=== PATIENT | female | born 1955 | race African-American/Black ===

== ENCOUNTER 2022-02-16 11:51 | Inpatient (IN) | payer OTHER ==
[2022-02-16 12:41] VITALS: BMI 27.2
[2022-02-16] MEDS ORDERED: MAGNESIUM HYDROX 2400MG/30ML ORAL SUSPENSION 30 ML CUP PO PRN (13:41)
[2022-02-16] MEDS ORDERED: NICOTINE 10 MG CARTRIDGE (INHALER) IH PRN (13:41)
[2022-02-16] MEDS ORDERED: DICYCLOMINE HCL 10 MG CAPSULE PO PRN (13:41)
[2022-02-16] MEDS ORDERED: BISMUTH SUBSALICYLATE 262 MG/15 ML BTL PO PRN (13:41)
[2022-02-16] MEDS ORDERED: ACETAMINOPHEN 325 MG TABLET (FP) PO PRN ×2 (13:41)
[2022-02-16] MEDS ORDERED: IBUPROFEN 400 MG TABLET (FP) PO PRN (13:41)
[2022-02-16] MEDS ORDERED: MAG HYDROX/AL HYDROX/SIMETH 30 ML UNIT-DOSE CUP PO PRN (13:41)
[2022-02-16] MEDS ORDERED: IBUPROFEN 600 MG TABLET (FP) PO PRN (13:41)
[2022-02-16] MEDS ORDERED: chlordiazePOXIDE HCL 25 MG CAPSULE PO PRN (13:41)
[2022-02-16] MEDS ORDERED: ONDANSETRON *ODT* 4 MG TABLET SL PRN (13:41)
[2022-02-16] MEDS ORDERED: MAGNESIUM CITRATE 300 ML BOTTLE PO PRN (13:41)
[2022-02-16] MEDS ORDERED: LOPERAMIDE HCL 2 MG CAPSULE PO PRN (13:41)
[2022-02-16] MEDS ORDERED: BENZOCAINE/MENTHOL (CHLORASEPTIC ) LOZENGE MM PRN (13:41)
[2022-02-16] MEDS: hydrOXYzine PAMOATE 25 MG CAPSULE (FP) PO SCH ×3 (15:05→22:50)
[2022-02-16] MEDS: METHOCARBAMOL 500 MG TABLET PO PRN (15:06)
[2022-02-16] MEDS: PRENATAL VITAMINS W/ FOLIC ACID TABLET (FP) PO SCH (15:06)
[2022-02-16] MEDS: NICOTINE 14 MG/24 HOURS TOPICAL PATCH TD SCH (15:07)
[2022-02-16] MEDS: chlordiazePOXIDE HCL 25 MG CAPSULE PO SCH ×2 (18:52→22:50)
[2022-02-16] MEDS ORDERED: MELATONIN 5 MG TABLETS PO SCH (22:00)
[2022-02-16] MEDS: THIAMINE HCL 100 MG TABLET (FP) PO SCH (22:50)
[2022-02-17] MEDS: chlordiazePOXIDE HCL 25 MG CAPSULE PO SCH ×2 (06:08→10:09)
[2022-02-17] MEDS: hydrOXYzine PAMOATE 25 MG CAPSULE (FP) PO SCH ×5 (06:08→22:38)
[2022-02-17] MEDS: amLODIPine BESYLATE 5 MG TABLET (FP) PO SCH (10:09)
[2022-02-17] MEDS: METOPROLOL TARTRATE 50 MG TABLET (FP) PO SCH ×2 (10:09→22:38)
[2022-02-17] MEDS: PRENATAL VITAMINS W/ FOLIC ACID TABLET (FP) PO SCH (10:09)
[2022-02-17] MEDS: LORATADINE 10 MG TABLET PO SCH (10:09)
[2022-02-17] MEDS: NICOTINE 14 MG/24 HOURS TOPICAL PATCH TD SCH (10:10)
[2022-02-17] MEDS ORDERED: methaDONE HCL 40 MG DISPERSABLE TABLET PO ONE (10:14)
[2022-02-17] MEDS ORDERED: diazePAM 5 MG TABLET PO PRN (10:50)
[2022-02-17 12:03] LABS: HEMOGLOBIN 11.3 GM/dL (10.7-15.3); MCH 28.5 pg (25.7-33.7); MCHC 33.3 g/dl (32.0-36.0); MEAN CELL VOLUME 85.6 fl (80-96); MEAN PLT VOLUME 9.4 fl (7.5-11.1); PLATELET COUNT 178 10^3/uL (134-434); RBC 3.97 M/mm3 (3.60-5.2); RDW 15.2 % (11.6-15.6); WHITE BLOOD COUNT 6.6 K/mm3 (4.0-10.0)
[2022-02-17 12:24] LABS: CALCIUM 8.7 mg/dL (8.5-10.1)
[2022-02-17 12:25] LABS: BLOOD UREA NITROGEN 21.4 mg/dL (7-18)
[2022-02-17 12:27] LABS: CREATININE 0.9 mg/dL (0.55-1.3)
[2022-02-17 12:29] LABS: TOT PROT 6.8 g/dl (6.4-8.2)
[2022-02-17 12:30] LABS: BILIRUBIN,TOTAL 0.3 mg/dL (0.2-1)
[2022-02-17] MEDS: ARIPiprazole 10 MG TABLET PO SCH (12:41)
[2022-02-17] MEDS: diazePAM 5 MG TABLET PO SCH ×3 (12:41→22:39)
[2022-02-17] MEDS: busPIRone HCL 10 MG TABLET (FP) PO SCH (12:41)
[2022-02-17] MEDS: metFORMIN HCL 500 MG TABLET (FP) PO SCH (17:48)
[2022-02-17] MEDS: TAMSULOSIN HCL 0.4 MG CAP PO SCH (22:38)
[2022-02-17] MEDS: THIAMINE HCL 100 MG TABLET (FP) PO SCH (22:39)
[2022-02-18] MEDS ORDERED: chlordiazePOXIDE HCL 25 MG CAPSULE PO SCH (05:00)
[2022-02-18] MEDS: methaDONE HCL 40 MG DISPERSABLE TABLET PO SCH (06:23)
[2022-02-18] MEDS: hydrOXYzine PAMOATE 25 MG CAPSULE (FP) PO SCH ×5 (06:24→22:26)
[2022-02-18] MEDS: metFORMIN HCL 500 MG TABLET (FP) PO SCH ×2 (06:24→18:21)
[2022-02-18] MEDS: diazePAM 5 MG TABLET PO SCH ×4 (06:24→22:26)
[2022-02-18] MEDS: amLODIPine BESYLATE 5 MG TABLET (FP) PO SCH (10:47)
[2022-02-18] MEDS: METOPROLOL TARTRATE 50 MG TABLET (FP) PO SCH ×2 (10:47→22:26)
[2022-02-18] MEDS: ARIPiprazole 10 MG TABLET PO SCH (10:48)
[2022-02-18] MEDS: PRENATAL VITAMINS W/ FOLIC ACID TABLET (FP) PO SCH (10:49)
[2022-02-18] MEDS: busPIRone HCL 10 MG TABLET (FP) PO SCH (10:49)
[2022-02-18] MEDS: LORATADINE 10 MG TABLET PO SCH (10:49)
[2022-02-18] MEDS: NICOTINE 14 MG/24 HOURS TOPICAL PATCH TD SCH (10:49)
[2022-02-18] MEDS: TAMSULOSIN HCL 0.4 MG CAP PO SCH (22:26)
[2022-02-18] MEDS: SUVOREXANT 10 MG TABLET PO PRN (22:27)
[2022-02-19] MEDS ORDERED: chlordiazePOXIDE HCL 10 MG CAPSULE PO PRN
[2022-02-19] MEDS: THIAMINE HCL 100 MG TABLET (FP) PO SCH ×2 (00:02→22:46)
[2022-02-19] MEDS ORDERED: chlordiazePOXIDE HCL 10 MG CAPSULE PO SCH (05:00)
[2022-02-19] MEDS: metFORMIN HCL 500 MG TABLET (FP) PO SCH ×2 (06:06→18:23)
[2022-02-19] MEDS: hydrOXYzine PAMOATE 25 MG CAPSULE (FP) PO SCH ×5 (06:06→22:47)
[2022-02-19] MEDS: methaDONE HCL 40 MG DISPERSABLE TABLET PO SCH (06:07)
[2022-02-19] MEDS: diazePAM 5 MG TABLET PO SCH ×3 (06:07→22:46)
[2022-02-19] MEDS: METOPROLOL TARTRATE 50 MG TABLET (FP) PO SCH ×2 (10:50→22:46)
[2022-02-19] MEDS: METHOCARBAMOL 500 MG TABLET PO PRN (10:50)
[2022-02-19] MEDS: amLODIPine BESYLATE 5 MG TABLET (FP) PO SCH (10:50)
[2022-02-19] MEDS: ARIPiprazole 10 MG TABLET PO SCH (10:50)
[2022-02-19] MEDS: LORATADINE 10 MG TABLET PO SCH (10:50)
[2022-02-19] MEDS: PRENATAL VITAMINS W/ FOLIC ACID TABLET (FP) PO SCH (10:50)
[2022-02-19] MEDS: busPIRone HCL 10 MG TABLET (FP) PO SCH (10:53)
[2022-02-19] MEDS: NICOTINE 14 MG/24 HOURS TOPICAL PATCH TD SCH (10:53)
[2022-02-19] MEDS: TAMSULOSIN HCL 0.4 MG CAP PO SCH (22:49)
[2022-02-19] MEDS: SUVOREXANT 10 MG TABLET PO PRN (22:50)
[2022-02-20] MEDS ORDERED: chlordiazePOXIDE HCL 10 MG CAPSULE PO SCH (05:00)
[2022-02-20] MEDS: methaDONE HCL 40 MG DISPERSABLE TABLET PO SCH (06:28)
[2022-02-20] MEDS: diazePAM 5 MG TABLET PO SCH ×2 (06:28→17:31)
[2022-02-20] MEDS: hydrOXYzine PAMOATE 25 MG CAPSULE (FP) PO SCH ×5 (06:29→22:38)
[2022-02-20] MEDS: metFORMIN HCL 500 MG TABLET (FP) PO SCH ×2 (06:29→17:32)
[2022-02-20] MEDS: PRENATAL VITAMINS W/ FOLIC ACID TABLET (FP) PO SCH (10:47)
[2022-02-20] MEDS: amLODIPine BESYLATE 5 MG TABLET (FP) PO SCH (10:47)
[2022-02-20] MEDS: busPIRone HCL 10 MG TABLET (FP) PO SCH (10:47)
[2022-02-20] MEDS: METOPROLOL TARTRATE 50 MG TABLET (FP) PO SCH ×2 (10:47→22:38)
[2022-02-20] MEDS: ARIPiprazole 10 MG TABLET PO SCH (10:47)
[2022-02-20] MEDS: LORATADINE 10 MG TABLET PO SCH (10:47)
[2022-02-20] MEDS: NICOTINE 14 MG/24 HOURS TOPICAL PATCH TD SCH (10:49)
[2022-02-20] MEDS: THIAMINE HCL 100 MG TABLET (FP) PO SCH (22:38)
[2022-02-20] MEDS: TAMSULOSIN HCL 0.4 MG CAP PO SCH (22:38)
[2022-02-21] MEDS ORDERED: chlordiazePOXIDE HCL 10 MG CAPSULE PO ONE (05:00)
[2022-02-21] MEDS: methaDONE HCL 40 MG DISPERSABLE TABLET PO SCH (05:34)
[2022-02-21] MEDS: hydrOXYzine PAMOATE 25 MG CAPSULE (FP) PO SCH (05:38)
[2022-02-21] MEDS ORDERED: diazePAM 5 MG TABLET PO ONE (06:00)
[2022-02-21] MEDS: metFORMIN HCL 500 MG TABLET (FP) PO SCH (07:06)
[2022-02-21 09:49] VITALS: BP 101/71; PULSE 61; RESP 19; TEMP 97.8
== END 2022-02-21 10:32 | disposition home or self-care (01) | DRG 773 ==
LOC: YASAS 11:51 → Y6N 14:25
PROVIDERS: ADMIT Allergy & Immunology; ATTEND Surgery
PROC: HZ2ZZZZ Detoxification Services for Substance Abuse Treatment (ICD-10-PCS; principal; 2022-02-16)
DX: F10.230 Alcohol dependence with withdrawal, uncomplicated (principal); F11.20 Opioid dependence, uncomplicated; F14.20 Cocaine dependence, uncomplicated; F17.210 Nicotine dependence, cigarettes, uncomplicated; F25.1 Schizoaffective disorder, depressive type; F19.280 Other psychoactive substance dependence with psychoactive substance-induced anxiety disorder; F19.282 Other psychoactive substance dependence with psychoactive substance-induced sleep disorder; F31.9 Bipolar disorder, unspecified; F41.9 Anxiety disorder, unspecified; I10 Essential (primary) hypertension; E11.9 Type 2 diabetes mellitus without complications; Z79.84 Long term (current) use of oral hypoglycemic drugs; I87.2 Venous insufficiency (chronic) (peripheral); Z86.19 Personal history of other infectious and parasitic diseases
CPT/HCPCS: 36415; 71046-TC-FY; 80053; 82962; 85027; 86780; C9803-CS; U0003; U0005